=== PATIENT | female | born 1975 | race Caucasian/White ===

== ENCOUNTER 2017-10-29 10:30 | Emergency (ER) | payer BC ==
[~2017-10-29] VITALS: Ht 175.3 cm; Wt 145.6 kg
[2017-10-29 10:33] VITALS: TEMP 36.8; Ht 175.3 cm; Wt 145.6 kg
[2017-10-29] MEDS ORDERED: IBUPROFEN 600 MG TAB PO STA (10:48)
[2017-10-29] MEDS ORDERED: OXYCODONE/ACETAMINOPHEN 5-325 TAB PO ONE (11:00)
--- NOTE | 2017-10-29 11:18 | DIAGNOSTIC IMAGING REPORT ---
R KNEE 1 OR 2 VIEWS ROUTINE CLINICAL HISTORY: Right knee pain. No trauma. COMPARISON: None FINDINGS: Evaluation is mildly compromised due to suboptimal penetration related to body habitus. Alignment of the right knee is anatomic. There is no acute fracture or joint effusion. There is minimal medial compartment joint space narrowing. IMPRESSION: 1. No acute fracture or joint effusion of the right knee. 2. Minimal medial compartment joint space narrowing of the right knee. Electronically signed by: Rod Peña M.D. 10/29/2017 11:16 AM Dictated Date/Time: 10/29/2017 11:15 AM
[2017-10-29] MEDS ORDERED: HYDROmorphone INJ 2 MG/ML SYR/VIAL IM STA (11:23)
[2017-10-29] MEDS ORDERED: OXYC-57 PO (11:28)
--- NOTE | 2017-10-29 11:32 | EMERGENCY ROOM VISIT NOTE ---
History Report prepared by Aubrey: Eris Gasca Under the Supervision of: Dr. Nelson Mckinney M.D. First contact with patient: 10:44 Chief Complaint: KNEEPAIN Stated Complaint: KNEE PAIN, BARELY WALK History of Present Illness The patient is a 42 year old female who presents to the Emergency Room with complaints of worsening right knee pain beginning a few weeks ago. She was seen at an urgent care facility a few weeks ago for her pain and had a negative knee x-ray. The patient's pain is worsened with walking. She denies numbness or weakness. Source of History: patient Onset: A few weeks ago Position: knee (right) Timing: worsening Modifying Factors (Worsening): other (walking) Associated Symptoms: No weakness, No numbness Review of Systems See HPI for pertinent positives & negatives. A total of 10 systems reviewed and were otherwise negative. Past Medical & Surgical Medical Problems: (1) No Known Active Medical Problems Family History No pertinent family history stated. Social History Smoking Status: Current Every Day Smoker Marital Status: Current/Historical Medications Scheduled PRN Oxycodone/Acetaminophen 5MG/325MG (Percocet 5MG/325MG), 1-2 TAB PO Q4H PRN for Pain Physical Exam Vital Signs Date Time Temp Pulse Resp B/P (MAP) Pulse Ox O2 Delivery O2 Flow Rate FiO2 10/29/17 11:51 71 18 149/85 98 Room Air 10/29/17 10:33 36.8 86 18 166/83 99 Room Air Physical Exam GENERAL: Awake, alert, well-appearing, in no acute distress HENT: Normocephalic, atraumatic. Oropharynx unremarkable. EYES: Normal conjunctiva. Sclera non-icteric. NECK: Supple. No nuchal rigidity. FROM. No JVD. RESPIRATORY: Clear to auscultation. CARDIAC: Regular rate, normal rhythm. Extremities warm and well perfused. Pulses equal. ABDOMEN: Soft, non-distended. No tenderness to palpation. No rebound or guarding. No masses. RECTAL: Deferred. MUSCULOSKELETAL: Chest examination reveals no tenderness. The back is symmetrical on inspection without obvious abnormality. There is no CVA tenderness to palpation. No joint edema. LOWER EXTREMITIES: Calves are equal size bilaterally. No contusion present to the right knee. Good ROM free from pain. No pain with varus or valgus stress. Good distal pulses. NEURO: Normal sensorium. No sensory or motor deficits noted. SKIN: No rash or jaundice noted. Medical Decision & Procedures ER Provider Diagnostic Interpretation: Radiology results as stated below per my review and radiologist interpretation: R KNEE 1 OR 2 VIEWS ROUTINE FINDINGS: Evaluation is mildly compromised due to suboptimal penetration related to body habitus. Alignment of the right knee is anatomic. There is no acute fracture or joint effusion. There is minimal medial compartment joint space narrowing. IMPRESSION: 1. No acute fracture or joint effusion of the right knee. 2. Minimal medial compartment joint space narrowing of the right knee. Electronically signed by: Rod Peña M.D. 10/29/2017 11:16 AM Medications Administered Medications (Trade) Dose Ordered Sig/Ab Route Start Time Stop Time Status Last Admin Dose Admin Ibuprofen (Motrin Tab) 600 mg NOW STAT PO 10/29/17 10:48 10/29/17 10:50 DC 10/29/17 11:17 600 MG Oxycodone/ Acetaminophen (Percocet 5-325mg Tab) 2 tab NOW ONCE PO 10/29/17 11:00 10/29/17 11:01 DC 10/29/17 11:17 2 TAB Hydromorphone HCl (Dilaudid Inj) 2 mg NOW STAT IM 10/29/17 11:23 10/29/17 11:25 DC 10/29/17 11:52 2 MG ED Course 1045: Past medical records reviewed. The patient was evaluated in room B6. A complete history and physical examination was performed. 1048: Ordered Motrin Tab 600 mg PO. 1100: Ordered Percocet 5-325 mg tab 2 tabs PO. 1123: Ordered Dilaudid Inj 2 mg IM. 1130: Upon reexamination the patient is resting comfortably. I discussed results and treatment plan with the patient. She verbalizes agreement and understanding. The patient is ready for discharge. Medical Decision Differential diagnosis: Etiologies such as fracture, dislocation, neurovascular compromise, compartment syndrome, soft tissue injury, as well as others were entertained. This is a 42-year-old female who presents the emergency department complaining of right knee pain. There is no evidence of dislocation contusion or effusion on examination. Patient also has good range of motion of the knee. X-rays do not show any evidence of acute fracture dislocation or subluxation. The patient was placed in an Dylon wrap and given Motrin as well as Percocet and Dilaudid for the pain. Repeat examination revealed improvement the patient's symptoms. I do feel that the patient as well as to be discharged home on crutches. I stressed the need for follow-up with orthopedics. Patient will be given a Percocet prescription for home. Patient and family were in agreement with the treatment plan. [place] Drug Monitoring Program Search Results: patient reviewed within database, no issues identified (unable to find matching patient) Medication Reconcilliation Current Medication List: was personally reviewed by me Blood Pressure Screening Patient's blood pressure: Elevated blood pressure Blood pressure disposition: Referred to PCP Impression Primary Impression: Knee pain Scribe Attestation The scribe's documentation has been prepared under my direction and personally reviewed by me in its entirety. I confirm that the note above accurately reflects all work, treatment, procedures, and medical decision making performed by me. Departure Information Dispostion Home / Self-Care Prescriptions Oxycodone/Acetaminophen 5MG/325MG (PERCOCET 5MG/325MG) Tab 1-2 TAB PO Q4H Y for Pain, #14 TAB Prov: Nelson Mckinney MD 10/29/17 Referrals No Doctor, Assigned (PCP) Forms HOME CARE DOCUMENTATION FORM, IMPORTANT VISIT INFORMATION Patient Instructions ED Crutch Walking, ED Meniscal Injury Knee Poss, ED RICE, ED Sprain Knee, My [facility] Additional Instructions Follow up with Dr Meneses's office You received narcotic or benzodiazepene medication while in the emergency room today. This is an addictive medication that may cause drowziness as well as constipation. Do not drive, operate heavy machinery, or drink alcohol under the influence of this medication. Take 600 mg Ibuprofen every 6 hours Take Percocet for breakthrough pain You have been examined and treated today on an emergency basis only. This is not a substitute for, or an effort to provide, complete comprehensive medical care. It is impossible to recognize and treat all injuries or illnesses in a single emergency department visit. It is therefore important that you follow up closely with your PCP. Call as soon as possible for an appointment. Thank you for your time and consideration. I look forward to speaking with you again soon. Please don't hesitate to call us if you have any questions. Problem Qualifiers Primary Impression: Knee pain Chronicity: acute Laterality: right Qualified Codes: M25.561 - Pain in right knee
[2017-10-29 11:51] VITALS: BP 149/85; PULSE 71; O2SAT 98
== END 2017-10-29 12:20 | disposition home or self-care (01) ==
LOC: C.EDB 10:33
DX: M25.561 Pain in right knee (principal); F17.200 Nicotine dependence, unspecified, uncomplicated